=== PATIENT | male | born 1935 | race Caucasian/White ===

== ENCOUNTER 2019-04-12 17:46 | Emergency (ER) | payer MEDICARE ==
--- NOTE | 2019-04-12 18:53 | EDM.PDOC ---
ED HPI GENERAL MEDICAL PROBLEM - General Chief Complaint: Neuro Symptoms/Deficits Stated Complaint: CONFUSED WITH LANGUAGE PROBLEMS Time Seen by Provider: 04/12/19 18:20 Source of Information: Reports: Patient, Family, RN Notes Reviewed History Limitations: Reports: No Limitations - History of Present Illness INITIAL COMMENTS - FREE TEXT/NARRATIVE: 83-year-old gentleman presents emergency department today with complaint of difficulty with speech. He has had 2 episodes today the first was around 11 AM this morning the second one was at 1300 episodes last about 10-15 minutes he describes it as he knows what he wants to say but the words come out as gibberish per family. The never appreciated any focal neurologic deficit during any of these events. At this time he feels he is back to his normal state. denies Pain Score (Numeric/FACES): 0 - Related Data Allergies Allergy/AdvReac Type Severity Reaction Status Date / Time Penicillins Allergy Itching Verified 04/12/19 18:13 Home Meds: Home Meds Albuterol [Proventil HFA] 2 puff INH Q4H PRN 04/12/19 [History] Doxazosin Mesylate [Cardura] 2 mg PO DAILY 04/12/19 [History] Finasteride 5 mg PO BEDTIME 04/12/19 [History] Insulin Glarg,Human.Rec.Analog [Lantus Solostar] 14 units SQ DAILY 04/12/19 [ History] Lisinopril 20 mg PO DAILY 04/12/19 [History] Omeprazole 20 mg PO DAILY 04/12/19 [History] Sertraline [Zoloft] 50 mg PO BEDTIME 04/12/19 [History] Simvastatin [Zocor] 40 mg PO BEDTIME 04/12/19 [History] Tiotropium [Spiriva] 18 mcg INH DAILY 04/12/19 [History] metFORMIN [Glucophage] 1,000 mg PO BIDMEALS 04/12/19 [History] Past Medical History HEENT History: Reports: Cataract, Hard of Hearing, Impaired Vision Cardiovascular History: Reports: CAD, High Cholesterol, Hypertension Respiratory History: Reports: Asthma Genitourinary History: Reports: BPH, Renal Calculus Psychiatric History: Reports: Anxiety Endocrine/Metabolic History: Reports: Diabetes, Type II Oncologic (Cancer) History: Reports: Other (See Below) Other Oncologic History: melanoma - Past Surgical History HEENT Surgical History: Reports: Cataract Surgery Cardiovascular Surgical History: Reports: Coronary Artery Bypass, Coronary Artery Stent GI Surgical History: Reports: Appendectomy, Colonoscopy Musculoskeletal Surgical History: Reports: Knee Replacement Social & Family History - Tobacco Use Smoking Status *Q: Former Smoker Used Tobacco, but Quit: Yes Month/Year Tobacco Last Used: 40 years ago - Caffeine Use Caffeine Use: Reports: Soda - Recreational Drug Use Recreational Drug Use: No ED ROS GENERAL - Review of Systems Review Of Systems: See Below (Throat) Constitutional: Reports: No Symptoms HEENT: Reports: No Symptoms Respiratory: Reports: No Symptoms Cardiovascular: Reports: Dyspnea on Exertion (Has been going on for about a year with 2 presyncopal events) GI/Abdominal: Reports: No Symptoms : Reports: No Symptoms Musculoskeletal: Reports: No Symptoms Skin: Reports: No Symptoms Neurological: Reports: Confusion, Change in Speech ED EXAM, NEURO - Physical Exam Exam: See Below Text/Narrative:: General: Male, not in any distress, alert and oriented x3 HEENT: head is atraumatic normocephalic, eyes pupils equal round reactive to light, sclera clear no conjunctivitis appreciated, extraocular eye movements intact. Ears hearing aid in left ear, cerumen impaction on right ear Nose no septal deviation, nares are clear, no blood present. Mouth mucosa is moist and pink no erythema or exudate noted in soft palate, tongue is midline uvula is midline , dentition is intact. Neck: Supple no thyromegaly no tracheal deviation. Nodes: Cervical nodes subclavicular nodes nontender no palpable lymphadenopathy noted. Lungs: clear to auscultation bilaterally with symmetrical respirations, no adventitious noise appreciated. CV: Regular rate and rhythm S1 and S2 appreciated no murmurs rubs or gallops noted. Abdomen: Soft, nontender, no palpable masses or organomegaly appreciated, no distention no guarding bowel sounds are present, . Neuro: Cranial nerves II test with pupillary light reflex 4 mm to 2 mm bilaterally, CN III test pupillary constriction, lid elevation and eye abduction bilaterally, CN IV downward movement of eyes bilaterally, CN V good jaw movement, CN lateral deviation of the eyes bilaterally to finger movement , CN VII symmetrical smile shows teeth without difficulty, CN VIII pass finger rub to ears bilaterally, CN IX adequate voice and tone, CN X adequate voice and tone no difficulty swallowing, CN XI can shrug shoulders without difficulty, CN XII can stick tongue out without difficulty, cranial nerves II to XII intact as tested, power is 5 x 5 upper and lower extremities, no pronator drift Skin: Warm and dry, intact Extremities: No lower extremity edema appreciated Course - Vital Signs Last Recorded V/S: Last Vital Signs Temp 97.9 F 04/12/19 19:59 Pulse 62 04/12/19 19:59 Resp 16 04/12/19 19:59 BP 162/69 H 04/12/19 19:59 Pulse Ox 98 04/12/19 19:59 - Orders/Labs/Meds Orders: Active Orders 24 hr Category Date Time Status EKG Documentation Completion [RC] ASDIRECTED Care 04/12/19 18:47 Active Peripheral IV Care [RC] . DIRECTED Care 04/12/19 20:22 Ordered Sodium Chloride 0.9% [Saline Flush] Med 04/12/19 20:21 Ordered 10 ml FLUSH ASDIRECTED PRN Peripheral IV Insertion Adult [OM.PC] Urgent Oth 04/12/19 20:21 Ordered EKG 12 Lead [EK] Urgent Ther 04/12/19 18:46 Ordered Medication Orders Sodium Chloride (Saline Flush) 10 ml FLUSH ASDIRECTED PRN PRN Reason: Keep Vein Open Labs: Laboratory Tests 04/12/19 04/12/19 04/12/19 Range/Units 18:59 18:59 18:59 WBC 6.4 (4.5-11.0) K/uL RBC 3.61 L (4.30-5.90) M/uL Hgb 10.7 L (12.0-15.0) g/dL Hct 32.7 L (40.0-54.0) % MCV 91 (80-98) fL MCH 30 (27-31) pg MCHC 33 (32-36) % Plt Count 113 L (150-400) K/uL Neut % (Auto) 70 H (36-66) % Lymph % (Auto) 16 L (24-44) % [place] % (Auto) 9 H (2-6) % Eos % (Auto) 4 (2-4) % Baso % (Auto) 1 (0-1) % ESR (0-20) mm/hr Sodium 141 (140-148) mmol/L Potassium 4.8 (3.6-5.2) mmol/L Chloride 108 (100-108) mmol/L Carbon Dioxide 26 (21-32) mmol/L Anion Gap 7.2 (5.0-14.0) mmol/L BUN 37 H (7-18) mg/dL Creatinine 1.7 H (0.8-1.3) mg/dL Est Cr Clr Drug Dosing 37.21 mL/min Estimated GFR (MDRD) 39 L (>60) Glucose 147 H (74-106) mg/dL Lactic Acid (0.4-2.0) mmol/L Calcium 9.4 (8.5-10.1) mg/dL Total Bilirubin 0.3 (0.2-1.0) mg/dL AST 14 L (15-37) U/L ALT 19 (12-78) U/L Alkaline Phosphatase 55 (46-116) U/L Ammonia 7 L (11-32) mmol/L Troponin I 0.072 H* (0.000-0.056) ng/mL Total Protein 6.5 (6.4-8.2) g/dL Albumin 3.5 (3.4-5.0) g/dL Globulin 3.0 (2.3-3.5) g/dL Albumin/Globulin Ratio 1.2 (1.2-2.2) Urine Color (YELLOW) Urine Appearance (CLEAR) Urine pH (5.0-8.0) Ur Specific [place] (1.008-1.030) Urine Protein (NEGATIVE) mg/dL Urine Glucose (UA) (NEGATIVE) mg/dL Urine Ketones (NEGATIVE) mg/dL Urine Occult Blood (NEGATIVE) Urine Nitrite (NEGATIVE) Urine Bilirubin (NEGATIVE) Urine Urobilinogen (0.2-1.0) EU/dL Ur Leukocyte Esterase (NEGATIVE) Urine RBC (0-5) Urine WBC (0-5) Ur Epithelial Cells Amorphous Sediment Urine Bacteria Urine Mucus 04/12/19 04/12/19 04/12/19 Range/Units 18:59 18:59 19:16 WBC (4.5-11.0) K/uL RBC (4.30-5.90) M/uL Hgb (12.0-15.0) g/dL Hct (40.0-54.0) % MCV (80-98) fL MCH (27-31) pg MCHC (32-36) % Plt Count (150-400) K/uL Neut % (Auto) (36-66) % Lymph % (Auto) (24-44) % [place] % (Auto) (2-6) % Eos % (Auto) (2-4) % Baso % (Auto) (0-1) % ESR 11 (0-20) mm/hr Sodium (140-148) mmol/L Potassium (3.6-5.2) mmol/L Chloride (100-108) mmol/L Carbon Dioxide (21-32) mmol/L Anion Gap (5.0-14.0) mmol/L BUN (7-18) mg/dL Creatinine (0.8-1.3) mg/dL Est Cr Clr Drug Dosing mL/min Estimated GFR (MDRD) (>60) Glucose (74-106) mg/dL Lactic Acid 1.2 (0.4-2.0) mmol/L Calcium (8.5-10.1) mg/dL Total Bilirubin (0.2-1.0) mg/dL AST (15-37) U/L ALT (12-78) U/L Alkaline Phosphatase (46-116) U/L Ammonia (11-32) mmol/L Troponin I (0.000-0.056) ng/mL Total Protein (6.4-8.2) g/dL Albumin (3.4-5.0) g/dL Globulin (2.3-3.5) g/dL Albumin/Globulin Ratio (1.2-2.2) Urine Color Yellow (YELLOW) Urine Appearance Clear (CLEAR) Urine pH 6.0 (5.0-8.0) Ur Specific [place] 1.020 (1.008-1.030) Urine Protein 30 H (NEGATIVE) mg/dL Urine Glucose (UA) 250 H (NEGATIVE) mg/dL Urine Ketones Negative (NEGATIVE) mg/dL Urine Occult Blood Trace-lysed H (NEGATIVE) Urine Nitrite Negative (NEGATIVE) Urine Bilirubin Negative (NEGATIVE) Urine Urobilinogen 0.2 (0.2-1.0) EU/dL Ur Leukocyte Esterase Negative (NEGATIVE) Urine RBC Not seen (0-5) Urine WBC 0-5 (0-5) Ur Epithelial Cells Not seen Amorphous Sediment Few Urine Bacteria Rare Urine Mucus Not seen Meds: Medications Generic Name Dose Route Start Last Admin Trade Name [place] PRN Reason Stop Dose Admin Sodium Chloride 10 ml 04/12/19 20:21 Saline Flush FLUSH ASDIRECTED PRN Keep Vein Open Discontinued Medications Generic Name Dose Route Start Last Admin Trade Name Freq PRN Reason Stop Dose Admin Aspirin 324 mg 04/12/19 20:26 Aspirin PO 04/12/19 20:27 ONETIME ONE Departure - Departure Time of Disposition: 20:37 Disposition: DC/Tfer to Acute Hospital 02 Condition: Fair Clinical Impression: Episode of change in speech, Elevated troponin - Discharge Information Referrals: PCP,None [Primary Care Provider] - Forms: ED Department Discharge - My Orders Last 24 Hours: My Active Orders 04/12/19 18:46 EKG 12 Lead [EK] Urgent 04/12/19 18:47 EKG Documentation Completion [RC] ASDIRECTED 04/12/19 20:21 Sodium Chloride 0.9% [Saline Flush] 10 ml FLUSH ASDIRECTED PRN Peripheral IV Insertion Adult [OM.PC] Urgent 04/12/19 20:22 Peripheral IV Care [RC] . DIRECTED - Assessment/Plan Last 24 Hours: My Active Orders 04/12/19 18:46 EKG 12 Lead [EK] Urgent 04/12/19 18:47 EKG Documentation Completion [RC] ASDIRECTED 04/12/19 20:21 Sodium Chloride 0.9% [Saline Flush] 10 ml FLUSH ASDIRECTED PRN Peripheral IV Insertion Adult [OM.PC] Urgent 04/12/19 20:22 Peripheral IV Care [RC] . DIRECTED Plan: Assessment Acuity = acute Site and laterality = change in spee and shortness of breath on exertion Etiology = unclear etiology Manifestations = none Location of injury = Home Lab values = hemoglobin low at 10.7 consistent normochromic anemia creatinine elevated at 1.7 consistent with chronic renal failure stage G IIIB lactic acid normal 1.2 troponin elevated 0.072 of uncertain significance urinalysis unremarkable EKG does demonstrates a sinus rhythm there were T-wave inversions in 2,[address] elevation 1 mm in V1 sloping change in V2 and V3 prolonged MD interval no old EKGs are available for comparison. CT scan shows possible evolving infarct left head lacunar Plan called discussed case with Dr. Leigh emergency room physician at [facility] 20:25 he kindly accepted the patient in transport was given 324 chewable aspirin while in the emergency department here will be transported via EMS ground This note was dictated using [employer] voice recognition software please call with any questions on syntax or grammar.
--- NOTE | 2019-04-12 19:54 | CRLCT ---
INDICATION: Intermittent slurred speech TECHNIQUE: CT head without contrast. COMPARISON: None available FINDINGS: There is age-related cerebral and cerebellar cortical atrophy. The ventricles are within normal limits for the patient`s age. There is no mass effect or midline shift. White matter hypodensities are suggestive of chronic small vessel ischemic changes. There is a low-density focus in the inferior aspect of the left caudate head on image 15 which is age indeterminate. There is no loss of diaz-white differentiation. There is no evidence of an acute intracranial hemorrhage. There is a 3 mm ovoid dense focus in the region of the foramen of [place] on image 20 which may be related to choroid plexus, although a small colloid cyst is not excluded. No acute calvarial fracture is seen. There is a mucosal retention cyst or polyp in the right sphenoid sinus. The mastoid air cells are clear. Post cataract surgery changes are possibly seen. IMPRESSION: No evidence of an acute intracranial hemorrhage, mass effect or loss of diaz-white differentiation. Age-related atrophy and chronic ischemic changes. A small evolving left caudate head lacunar infarct is not excluded. Correlate clinically. Dictated by Chris Diaz MD @ 04/12/2019 7:51:51 PM Please note that all CT scans at this facility use dose modulation, iterative reconstruction, and/or weight-based dosing when appropriate to reduce radiation dose to as low as reasonably achievable. Dictated by: Chris Diaz MD @ 04/12/2019 19:52:46 (Electronically Signed)
[2019-04-12] MEDS ORDERED: Sodium Chloride 0.9% 10 ML Syringe FLUSH PRN (20:21)
[2019-04-12] MEDS ORDERED: Aspirin 81 MG Tab.Chew PO ONE (20:26)
== END 2019-04-12 21:16 ==
LOC: JP.ED 17:46
DX: R47.89 Other speech disturbances (principal); R74.8 Abnormal levels of other serum enzymes; I10 Essential (primary) hypertension; J45.909 Unspecified asthma, uncomplicated; E78.00 Pure hypercholesterolemia, unspecified; E11.9 Type 2 diabetes mellitus without complications; F41.9 Anxiety disorder, unspecified; Z88.0 Allergy status to penicillin; Z79.899 Other long term (current) drug therapy; Z79.4 Long term (current) use of insulin; Z79.51 Long term (current) use of inhaled steroids; Z90.49 Acquired absence of other specified parts of digestive tract; Z87.891 Personal history of nicotine dependence
CPT/HCPCS: 36415; 70450; 80053; 81001; 82140; 83605; 84484; 85025; 85651; 93005; 99285; A9270